=== PATIENT | female | born 1980 | race Caucasian/White ===

== ENCOUNTER 2016-09-02 22:26 | Emergency (ER) | payer SELFPAY ==
[~2016-09-02] VITALS: Ht 165.1 cm; Wt 100.0 kg
[2016-09-02] MEDS ORDERED: SODIUM CHLORIDE 0.9% 1,000 ML IV ONE (22:41)
[2016-09-02] MEDS ORDERED: NOREPINEPHRINE 4 MG in DEXT 5% WATER 250 ML IV STA ×3 (22:41→23:56)
[2016-09-02 23:11] LABS: HEMATOCRIT. 29.6 % (36.0-48.0); HEMOGLOBIN. 9.2 g/dL (12.0-16.0); MEAN CORPUSCULAR HEMOGLOBIN 28.7 pg (28.0-32.0); MEAN CORPUSCULAR VOLUME 92.7 fL (81.0-99.0); MEAN PLATELET VOLUME 9.2 fl (7.4-10.4); PLATELET 73 x1000/uL (130-400); RED CELL DISTRIBUTION WIDTH 14.4 % (11.6-14.6)
[2016-09-02] MEDS ORDERED: EPINEPHRINE 0.1MG/ML (1:10,000) 10ML SYR ONE ×2 (23:18→23:45)
[2016-09-02 23:19] LABS: PARTIAL THROMBOPLASTIN TIME 57.2 sec (24.0-34.0); PROTHROMBIN TIME 21.4 sec
[2016-09-02 23:23] LABS: CARBON DIOXIDE 12 mEq/L (21-32); CHLORIDE 110 mEq/L (98-107); ETHANOL BLOOD < 10 mg/dL
[2016-09-02 23:34] LABS: PLATELET ESTIMATE DECREASED
[2016-09-02] MEDS ORDERED: SODIUM BICARBONATE 7.5% 0.9 MEQ/ML 50ML SYR IV ONE (23:45)
[2016-09-02 23:52] LABS: TROPONIN I 0.95 ng/mL (0.00-0.04)
[2016-09-03] MEDS ORDERED: EPINEPHRINE 1 MG in SODIUM CHLORIDE 0.9% 249 ML IV PRN ×3 (00:15)
[2016-09-03 00:37] VITALS: BP 0/0
== END 2016-09-03 00:37 | disposition expired ==
LOC: ER 22:32 → CANBEDREQ 09-03 01:32
DX: I46.9 Cardiac arrest, cause unspecified (principal)
CPT/HCPCS: 31500; 36415; 36556; 51702; 71010; 80053; 83605; 84484; 85025; 85610; 85730; 86850; 86870; 86900; 86901; 87040; 92950; 96365; 99291; G0482; J0171; J3490; J7030; Z7610; 94002; J7050; J7060; A4315